=== PATIENT | female | born 1975 | race Hispanic/Latino ===

== ENCOUNTER → 2018-03-17 | Outpatient (CLI) | payer MEDICARE | END | disposition home or self-care (01) | LOC: OIH 08:41 | PROVIDERS: ATTEND Internal Medicine | DX: M79.621 Pain in right upper arm (principal) | CPT/HCPCS: 73060 ==

== ENCOUNTER → 2023-10-08 | Outpatient (CLI) | payer OTHER, MEDICARE | END | disposition home or self-care (01) | LOC: SHCH 09:46 | PROVIDERS: ATTEND Internal Medicine Cardiovascular Disease | DX: I87.2 Venous insufficiency (chronic) (peripheral) (principal); I87.1 Compression of vein; I73.9 Peripheral vascular disease, unspecified; R06.09 Other forms of dyspnea; I10 Essential (primary) hypertension; R01.1 Cardiac murmur, unspecified | CPT/HCPCS: 93925; 93970 ==

== ENCOUNTER → 2023-12-03 | Outpatient (CLI) | payer OTHER, MEDICARE | END | disposition home or self-care (01) | LOC: SHCH 09:49 | PROVIDERS: ATTEND Internal Medicine Cardiovascular Disease | DX: R01.1 Cardiac murmur, unspecified (principal); I10 Essential (primary) hypertension; R06.09 Other forms of dyspnea | CPT/HCPCS: 93306 ==

== ENCOUNTER → 2024-03-08 | Outpatient (CLI) | payer OTHER, MEDICARE ==
--- NOTE | 2024-03-08 14:52 | HMCIMG ---
LUMBAR SPINE 2-3VWS HISTORY: Right leg pain COMPARISON: None FINDINGS: 3 images of lumbar spine were obtained. Anterior osteophytes are seen. Displacement are seen at L2-3, L3-4, L4-5 and L5-S1 levels. There are degenerative changes with lumbar spine spondylosis. There is straightening of normal lordotic curvature which may be related to muscle spasm or positioning. No loss of vertebral height is seen. No fracture or dislocation is seen. Degenerative changes are seen. IMPRESSION: 1. No fracture is seen. DJD.
== END | disposition home or self-care (01) ==
LOC: OIH 13:46
PROVIDERS: ATTEND Internal Medicine
DX: M47.816 Spondylosis without myelopathy or radiculopathy, lumbar region (principal); M48.061 Spinal stenosis, lumbar region without neurogenic claudication; M51.26 Other intervertebral disc displacement, lumbar region; M51.27 Other intervertebral disc displacement, lumbosacral region; M25.78 Osteophyte, vertebrae
CPT/HCPCS: 72100

== ENCOUNTER → 2024-03-17 | Outpatient (CLI) | payer OTHER, MEDICARE ==
--- NOTE | 2024-03-17 11:30 | HMCIMG ---
MR SPINAL CANAL, LUMBAR WO CON REASON: M51.26 Other intervertebral disc displacement, lumbar region COMPARISON: None TECHNIQUE: Routine lumbar imaging protocol was performed. Exam was performed without IV contrast. FINDINGS: Sagittal images show severe interspace narrowing at L2, L3 and L4. Remaining interspaces are preserved. Vertebral body alignment appears normal. Axial images show widely patent to the L5-S1 interspace. There is a small central disc herniation at L4-5, AP diameter is preserved at 12 mm. There is a focal disc herniation posteriorly and to the left at the L3-4 level, AP diameter of the thecal sac is preserved at 1 cm, there is some narrowing of the left lateral recess. There is a central disc herniation at C2-3, AP diameter in the midline mildly narrowed at between 7 and 8 mm. Lateral recesses may be mildly narrowed at this level as well. Neural foramina appear preserved. There are no focal osseous lesions. Surrounding soft tissues are unremarkable. IMPRESSION: 1. Marked degenerative change at the L2, L3 and L4 disc interspaces. 2. Focal disc herniation posteriorly and to the left at L3-4, there is some narrowing of the left lateral recess, AP diameter preserved in the midline. 3. Central disc herniation at C2-3 with mild narrowing of the spinal canal to between 7 and 8 mm 4. Otherwise unremarkable exam.
== END | disposition home or self-care (01) ==
LOC: RAH 09:30
PROVIDERS: ATTEND Internal Medicine
DX: M47.816 Spondylosis without myelopathy or radiculopathy, lumbar region (principal); M51.26 Other intervertebral disc displacement, lumbar region; M48.061 Spinal stenosis, lumbar region without neurogenic claudication; M50.21 Other cervical disc displacement, high cervical region
CPT/HCPCS: 72148